=== PATIENT | female | born 1970 | race Caucasian/White ===

== ENCOUNTER 2025-07-04 20:50 | Emergency (ER) | payer MEDICAID, SELFPAY ==
[2025-07-04 20:52] VITALS: BMI 22.1
[2025-07-04 21:15] VITALS: BP 146/84; PULSE 100; RESP 18; TEMP 37.4; O2SAT 96
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
[2025-07-04] MEDS: BACITRACIN OINT 1 GM PACKET TOP (22:21)
[2025-07-04] MEDS: CLINDAMYCIN PHOS INJ 150 MG/ML VIAL 6 ML 600 MG IM (22:21)
[2025-07-04] MEDS: DIPHTH,PERTUSS(ACELL),TET VAC 0.5 ML SYR- ADULT IMi (22:22)
[2025-07-04] MEDS: HYDROcodone/APAP 5/325 TABLET 1 TAB PO (22:23)
== END 2025-07-04 22:56 | disposition home or self-care (01) ==
LOC: SERX 22:33
PROVIDERS: Emergency Provider Emergency Medicine; PCP Family Medicine
DX: L03.113 Cellulitis of right upper limb (principal); Z23 Encounter for immunization
CPT/HCPCS: 90471; 90715; 96372; 99282; J0736; A9270